=== PATIENT | male | born 1985 | race Caucasian/White ===

== ENCOUNTER 2023-10-31 12:15 | Emergency (ER) | payer OTHER, SELFPAY ==
[2023-10-31 12:25] VITALS: BP 143/94; PULSE 73; RESP 16; TEMP 36.5; O2SAT 97; BMI 33.7
--- NOTE | 2023-10-31 13:52 | ECG_ITS ---
[facility] Test Date: 2023-10-31 Pat Name: CARLOS JON Department: Room: - Gender: Male [employer]: : 1985 Requested By: GETACHEW YOU Order Number: [id number] Reading MD: LEENA HOWE Measurements Intervals [place] Rate: 60 P: 51 LA: 154 QRS: 58 QRSD: 96 T: 34 QT: 344 QTc: 346 Interpretive Statements 1100 Sinus rhythm 4068 Nonspecific Twave abnormality 8305 Short QTc interval 9150 abnormal ECG No previous ECG available for comparison Electronically Signed On 11-01-2023 7:12:50 EST by LEENA HOWE
--- NOTE | 2023-10-31 13:58 | ED_ITS ---
HPI - Anxiety General Chief Complaint: Dizziness Stated Complaint: DIZZINESS Time Seen by Provider: 10/31/23 12:49 Source: patient Mode of arrival: walk-in Limitations: no limitations History of Present Illness HPI narrative: 37-year-old male presents to the emergency room with a chief complaint of dizziness and shortness of breath while at work. Patient has a history of vertigo and anxiety. He has been following up with Dr. Tobias for this condition. He does take Spiriva is not taking BuSpar today. Patient also has meclizine which he states he does not feel helps. Patient has no neurological deficits at this time. Patient looks well. Center in all questions appropriately. He states since sitting here in emergency room he does feel well. Vital signs are stable this time. Related Data Home Medications Medication Instructions Recorded Confirmed buspirone 5 mg tablet 7.5 mg PO BID 10/31/23 10/31/23 meclizine 25 mg tablet 25 mg PO TID 10/31/23 10/31/23 Allergies Allergy/AdvReac Type Severity Reaction Status Date / Time oxycodone AdvReac Mild Verified 10/31/23 12:24 Review of Systems ROS Narrative All Systems are negative except as noted/marked. PFSH PFSH Social History Smoking status: Current every day smoker Exam Narrative Exam Narrative: Nurses note and vital signs reviewed and patient is not hypoxic. General: The patient appears well and in no apparent distress. Patient is resting comfortably on cart. Skin: Warm, dry, no pallor noted. There is no rash noted. Head: Normocephalic, atraumatic Eye: Normal conjunctiva, no drainage, EOMI. PERRL Ears, Nose, Mouth, and Throat: oral mucosa is moist. Nares patent. Mouth without vesicles. Ear canals patent. Tm's without Erythema Cardiovascular: Regular Rate and Rhythm Respiratory: Patient is in no distress, no accessory muscle use, lungs are clear to auscultation, no wheezing, rales or rhonchi Back: non-tender, no CVA tenderness bilaterally to percussion. Musculoskeletal: The patient has no evidence of calf tenderness, no pitting edema, symmetrical pulses noted bilaterally Neurological: A&O x4, normal speech Psychiatric: Cooperative, answers questions approp. Constitutional Vital Signs, click to edit/add: Last Vital Signs Temp 97.7 F 10/31/23 12:25 Pulse 61 10/31/23 14:17 Resp 18 10/31/23 14:17 BP 135/78 10/31/23 14:17 Pulse Ox 97 10/31/23 14:17 O2 Del Method Room Air 10/31/23 12:25 Course Vital Signs Vital signs: Vital Signs Temperature 97.7 F 10/31/23 12:25 Pulse Rate 73 10/31/23 12:25 Respiratory Rate 16 10/31/23 12:25 Blood Pressure 143/94 H 10/31/23 12:25 Pulse Oximetry 97 10/31/23 12:25 Oxygen Delivery Method Room Air 10/31/23 12:25 Temperature 97.7 F 10/31/23 12:25 Pulse Rate 61 10/31/23 14:17 Respiratory Rate 18 10/31/23 14:17 Blood Pressure 135/78 10/31/23 14:17 Pulse Oximetry 97 10/31/23 14:17 Oxygen Delivery Method Room Air 10/31/23 12:25 MDM - Anxiety MDM Narrative Medical decision making narrative: 37-year-old male presents here with a chief complaint of dizziness and what he describes as an anxiety attack. Since being here in emergency room he states he does feel better. He took up prior to coming here to the emergency room and states he believes it is helping symptoms. Patient states she is going to be following up with his primary care physician to be placed on different medications. Due to his symptoms and concern for other issues CBC BMP and thyroid were all evaluated today. Lab work is all within normal limits. EKG was also normal. Troponin and thyroid are also normal. Patient states he feels much better at this time he was given one dose of Vistaril here. He is going to follow-up with his primary care physician as discussed.Patient agrees to same and anxiety from stress at work. Differential Diagnosis Differential diagnosis: Likely hyperventilation, panic disorder and acute anxiety Medical Records Attestation: I reviewed the patient's medical records. Lab Data Attestation: I reviewed the patient's lab results. Labs: Lab Results 10/31/23 Range/Units 12:39 WBC 12.1 H (4.0-11.0) 10^3/uL RBC 4.81 (4.70-6.10) 10^6/uL Hgb 14.4 (14.0-18.0) g/dL Hct 42.7 (42.0-54.0) % MCV 88.8 (80.0-94.0) fL MCH 29.9 (25.9-34.0) pg MCHC 33.7 (29.9-35.2) g/dL RDW 12.2 (11.0-15.0) % Plt Count 337 (150-450) 10^3/uL MPV 10.4 (9.5-13.5) fL Neut % (Auto) 68.3 (43.0-75.0) % Lymph % (Auto) 19.0 L (20.5-60.0) % [place] % (Auto) 9.6 (1.7-12.0) % Eos % (Auto) 1.8 (0.9-7.0) % Baso % (Auto) 0.9 (0.2-2.0) % Neut # (Auto) 8.2 H (1.4-6.5) 10^3/uL Lymph # (Auto) 2.3 (1.2-3.8) 10^3/uL [place] # (Auto) 1.2 H (0.3-0.8) 10^3/uL Eos # (Auto) 0.2 (0.0-0.7) 10^3/uL Baso # (Auto) 0.1 (0.0-0.1) 10^3/uL Abs Immat Gran (auto) 0.05 H (0.00-0.03) 10^3/uL Imm/Tot Granulo (auto) 0.4 (0.0-0.5) % Sodium 136 (136-145) mmol/L Potassium 4.0 (3.5-5.1) mmol/L Chloride 104 (98-107) mmol/L Carbon Dioxide 25.0 (21.0-32.0) mmol/L Anion Gap 11.0 BUN 7.0 (7.0-18.0) mg/dL Creatinine 1.00 (0.70-1.30) mg/dL Est GFR ( Amer) >60 (>=60) Est GFR (Non-Af Amer) >60 (>=60) BUN/Creatinine Ratio 7.0 Glucose 114 H (74-106) mg/dL Calcium 9.0 (8.5-10.1) mg/dL Total Bilirubin 0.4 (0.2-1.0) mg/dL AST 18 (15-37) U/L ALT 43 (16-63) U/L Alkaline Phosphatase 70 (46-116) U/L Troponin I High Sens 19.3 (4.0-76.1) pg/mL Total Protein 7.2 (6.4-8.2) g/dL Albumin 4.1 (3.4-5.0) g/dL Globulin 3.1 g/dL Albumin/Globulin Ratio 1.3 TSH 0.780 (0.358-3.740) uIU/mL Imaging Data Chest x-ray: Radiologist's impression: ITS Impressions Chest X-Ray 10/31/23 14:16 IMPRESSION: No acute cardiopulmonary abnormality. Electronically authenticated by: WATSON AGUILA Date: 10/31/2023 14:48 ECG Data Attestation: ?I have reviewed the pertinent ECG results. Interpretation: 1228 EKG shows normal sinus rhythm rate of 60 bpm, no ST elevation or depression, IL interval 154 ms, QRS duration 96 ms, no STEMI Discharge Plan Discharge Chief Complaint: Dizziness Clinical Impression: Acute anxiety Patient Disposition: Home, Self-Care Time of Disposition Decision: 14:53 Condition: Good Prescriptions / Home Meds: No Action buspirone 5 mg tablet 7.5 mg PO BID meclizine 25 mg tablet 25 mg PO TID Instructions: Vertigo (ED), Anxiety (ED) Stand Alone Forms: Portal Instructions Referrals: GETACHEW YOU [Primary Care Provider] - 1 week
[2023-10-31 14:10] LABS: Basophils Absolute Auto 0.1 10^3/uL (0.0-0.1); Basophils Percent Auto 0.9 % (0.2-2.0); Eosinophils Absolute Auto 0.2 10^3/uL (0.0-0.7); Eosinophils Percent Auto 1.8 % (0.9-7.0); Hematocrit 42.7 % (42.0-54.0); Hemoglobin 14.4 g/dL (14.0-18.0); Immature Granulocytes Abs Auto 0.05 10^3/uL (0.00-0.03); Immature Granulocytes Pct Auto 0.4 % (0.0-0.5); Lymphocytes Absolute Auto 2.3 10^3/uL (1.2-3.8); Mean Corpuscular HGB Conc 33.7 g/dL (29.9-35.2); Mean Corpuscular Hemoglobin 29.9 pg (25.9-34.0); Mean Corpuscular Volume 88.8 fL (80.0-94.0); Mean Platelet Volume 10.4 fL (9.5-13.5); Monocytes Absolute Auto 1.2 10^3/uL (0.3-0.8); Monocytes Percent Auto 9.6 % (1.7-12.0); Neutrophils Absolute Auto 8.2 10^3/uL (1.4-6.5); Neutrophils Percent Auto 68.3 % (43.0-75.0); Platelet Count 337 10^3/uL (150-450); Red Blood Count 4.81 10^6/uL (4.70-6.10); Red Cell Distribution Width 12.2 % (11.0-15.0); White Blood Count 12.1 10^3/uL (4.0-11.0)
[2023-10-31] MEDS: HYDROXYZINE PAMOATE 25 MG CAPSULE PO (14:15)
[2023-10-31] MEDS: 0.9 % SODIUM CHLORIDE 1,000 ML 1000 ML IV (14:15)
--- NOTE | 2023-10-31 14:16 | XR_ITS ---
[place] [id number] Patient Name: CARLOS JON MRN: [id number] date: 1985 Sex: M Assigned Patient Location: ER Current Patient Location: ED.MAIN Accession/Order Number: [id number] Exam Date: 10/31/2023 14:31 Report Date: 10/31/2023 14:48 At the request of: MICHELL RUFFIN Procedure: XR chest 2V EXAMINATION: XR chest 2V 10/31/2023 11:46 AM PST, [id number]. HISTORY: anxiety TECHNIQUE: 2 views of the chest were acquired. COMPARISONS: None. FINDINGS: Lines/tubes/other: None. Heart and mediastinum: Within normal limits. Bones: No acute osseous abnormality. Lungs: Clear. Pleura: No pleural effusion or pneumothorax. Other: No pneumoperitoneum. XR/XR chest 2V IMPRESSION: No acute cardiopulmonary abnormality. Electronically authenticated by: WATSON AGUILA Date: 10/31/2023 14:48
[2023-10-31 14:17] VITALS: BP 135/78; PULSE 61; RESP 18; O2SAT 97
[2023-10-31 14:21] LABS: Alanine Aminotransferase 43 U/L (16-63); Albumin Globulin Ratio 1.3; Albumin Level 4.1 g/dL (3.4-5.0); Alkaline Phosphatase 70 U/L (46-116); Aspartate Amino Transferase 18 U/L (15-37); Bilirubin Total 0.4 mg/dL (0.2-1.0); Chloride 104 mmol/L (98-107); Estimated GFR (African America >60 (>=60); Estimated GFR (Non-African Ame >60 (>=60); Globulin 3.1 g/dL; Glucose 114 mg/dL (74-106); Sodium 136 mmol/L (136-145); Total Protein 7.2 g/dL (6.4-8.2)
[2023-10-31 14:29] LABS: Troponin I High Sensitivity 19.3 pg/mL (4.0-76.1)
== END 2023-10-31 15:04 | disposition home or self-care (01) ==
PROVIDERS: Physician Assistant; Emergency Provider Emergency Medicine Emergency Medical Services; PCP Family Medicine
DX: F41.9 Anxiety disorder, unspecified (principal); F17.210 Nicotine dependence, cigarettes, uncomplicated; Z79.899 Other long term (current) drug therapy
CPT/HCPCS: 36415; 71046; 80053; 84443; 84484; 85025; 93005; 96360; 99285; Q0177